=== PATIENT | female | born 1990 | race African-American/Black ===

== ENCOUNTER 2022-04-10 16:20 | Emergency (ER) | payer OTHER ==
[~2022-04-10] VITALS: Ht 160 cm; Wt 56.7 kg
[2022-04-10 16:53] VITALS: BP 121/70
== END 2022-04-10 18:11 | disposition home or self-care (01) ==
LOC: ER 16:24
DX: R06.00 Dyspnea, unspecified (principal); R07.89 Other chest pain; Z98.890 Other specified postprocedural states
CPT/HCPCS: 71045-TC